=== PATIENT | male | born 1980 | race Hispanic/Latino ===

== ENCOUNTER 2021-12-12 22:45 | Emergency (ER) | payer OTHER, MEDICAID, SELFPAY ==
[2021-12-12 22:57] VITALS: BP 128/72; PULSE 92; RESP 20; TEMP 36.4; O2SAT 100
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
[2021-12-13] MEDS: TET,DIPH,PERTUSS(ACELL),VAC/PF 0.5 ML SYRINGE IM (00:44)
[2021-12-13] MEDS: cephALEXin 250 MG PREPACK 1 BOTTLE MISC (00:44)
[2021-12-13 00:55] VITALS: BP 122/79; PULSE 66; RESP 17; O2SAT 99
== END 2021-12-13 00:56 | disposition home or self-care (01) ==
PROVIDERS: Emergency Provider Emergency Medicine
DX: S60.221A Contusion of right hand, initial encounter (principal); W22.8XXA Striking against or struck by other objects, initial encounter; Z23 Encounter for immunization
CPT/HCPCS: 73130; 90471; 99283; 90715